=== PATIENT | male | born 2005 | race Caucasian/White ===

== ENCOUNTER 2024-09-08 19:24 | Emergency (ER) | payer OTHER, SELFPAY ==
[2024-09-08 19:42] VITALS: BP 132/79; PULSE 58; RESP 18; TEMP 36.7; O2SAT 100
--- NOTE | 2024-09-08 20:52 | ED_ITS ---
HPI - Skin/Abscess/Foreign Bdy General Chief complaint: Skin/Abscess/Foreign Body Stated complaint: rash Time Seen by Provider: 09/08/24 19:50 Source: patient and RN notes reviewed Mode of arrival: ambulatory Limitations: no limitations History of Present Illness HPI narrative: 19-year-old male presents [facility] complaining of rashes started yesterday. Patient believes he was exposed to poison oak or poison gabby. Patient yesterday was outside your trees triggering, he is unsure what he he came into contact with. Stated started just below his chin and now spread to his neck and his trunk and some into his arms. Patient reports that the rash is itchy. Patient denies any upper respiratory symptoms, fevers, body aches, chills. Patient has not been taking anything [id number] to help with the symptoms. Related Data Allergies Allergy/AdvReac Type Severity Reaction Status Date / Time No Known Allergies Allergy Verified 09/08/24 19:55 Review of Systems Review of Systems: CONSTITUTIONAL: Denies fever, chills, or sweats. EYES: Denies visual changes, redness, or discharge. ENT: Denies rhinorrhea, congestion, sore throat, or otalgia. CARDIOVASCULAR: Denies chest pain, palpitations, or edema. RESPIRATORY: Denies cough or dyspnea. GASTROINTESTINAL: Denies abdominal pain, nausea, vomiting, or diarrhea. GENITOURINARY: Denies dysuria or hematuria. SKIN: Positive for rash and itching. MUSCULOSKELETAL: Denies back pain, joint pain, or myalgia. NEUROLOGIC: Denies headache, numbness, or weakness. PSYCHIATRIC: Denies anxiety or depression. All other systems reviewed are negative, except as documented in HPI. PMFSH Comments At the time of my signature, I reviewed and agree with the nursing past medical, surgical, social, and family history. There is no relevant family history pertinent to the patient complaint. Exam Narrative: GENERAL: This is a well-nourished, well-developed adult, in no apparent distress. They are non ill-appearing, nontoxic appearing. HEAD: normocephalic, atraumatic. EYES: Sclera clear/white. Conjunctiva normal. Vision is grossly intact. Extraocular movements intact EARS: External ears normal, Hearing grossly intact. NOSE: External nose normal THROAT: Mucous membranes moist, NECK: Neck supple, non-tender without lymphadenopathy, swelling, masses or thyromegaly. CARDIOVASCULAR: Regular rate and rhythm without murmurs, gallops, or rubs. RESPIRATORY: Clear to auscultation. Breath sounds equal bilaterally. No wheezes, rales, or rhonchi. SKIN: Pruritic maculopapular rash throughout patient's neck, inferior part of his chin, trunk, and sporadic throughout his arms and legs. No area of fluctuance or induration. No exudate. Excoriation. NEURO: awake, alert, and oriented to person, place and time. There were no obvious focal neurologic abnormalities. EXTREMITIES: No joint tenderness, effusion, or edema noted. BACK: Nontender without deformity. Course Course Emergency Course: Portions of this record may have been created with voice recognition software Level of Care: Express Care Visit Vital Signs Vital signs: Vital Signs Temperature 98.1 F 09/08/24 19:42 Pulse Rate 58 L 09/08/24 19:42 Respiratory Rate 18 09/08/24 19:42 Blood Pressure 132/79 09/08/24 19:42 Pulse Oximetry 100 09/08/24 19:42 Temperature 98.1 F 09/08/24 19:42 Pulse Rate 58 L 09/08/24 19:42 Respiratory Rate 18 09/08/24 19:42 Blood Pressure 132/79 09/08/24 19:42 Pulse Oximetry 100 09/08/24 19:42 Reviewed MDM - Skin/Abscess/Foreign Bdy MDM Narrative Medical decision making narrative: Patient likely has a poison gabby or poison oak contact dermatitis. Will treat empirically with prednisone taper. Recommend tecnu soap and antihistamines for supportive therapy. Discussed physical exam findings. Advised supportive measures and signs/symptoms to go to the ER. Pt is appropriate for outpt treatment and f/u. Differential Diagnosis Differential diagnosis: Likely dermatophytosis, cellulitis and contact dermatitis Critical Care Time Critical Care Time Critical Care Time: No Discharge Plan Discharge Clinical Impression: Contact dermatitis Qualifiers: Contact dermatitis type: unspecified Contact dermatitis trigger: unspecified trigger Qualified Code(s): L25.9 - Unspecified contact dermatitis, unspecified cause Patient Disposition: Home Condition: Stable Instructions: Poison Gabby (ED) Additional Instructions: Take steroids as directed. You may take Zyrtec or Claritin for the itching. You may also take Benadryl as well however Benadryl may make you drowsy so do not drive or operate machinery on it. You may apply calamine lotion to the affected area to also help with itchiness. You may use [employer] [id number] at [employer] that is a soap for poison gabby/poison oak. Use as directed. Please follow-up with primary care doctor in 5-7 days. If your symptoms worsen he developed breathing problems, fevers or any other concerns please go to the ER immediately. Patient Language: Mohawk Prescriptions: New prednisone 10 mg tablet See Taper PO DIRECTED Qty: 49 0RF Taper: Prednisone Taper from 60 mg;12 days 60 mg DAILY for 3 Days and 0 Hour 50 mg DAILY for 2 Days and 0 Hour 40 mg DAILY for 2 Days and 0 Hour 30 mg DAILY for 2 Days and 0 Hour 20 mg DAILY for 2 Days and 0 Hour 10 mg DAILY for 3 Days and 0 Hour Rx Instructions: see taper instructions Follow-up/Referrals: PHYSICIAN,AUTOMOTIVE PAINTER HELPER [Primary Care Provider] - Time of Disposition: 19:55
== END 2024-09-08 20:01 | disposition home or self-care (01) ==
DX: L25.9 Unspecified contact dermatitis, unspecified cause (principal)
CPT/HCPCS: 99203; G0463